=== PATIENT | male | born 1985 | race Caucasian/White ===

== ENCOUNTER 2018-02-11 17:32 | Emergency (ER) | payer OTHER ==
[~2018-02-11] VITALS: Ht 177.8 cm; Wt 86.1 kg
[2018-02-11 17:34] VITALS: BP 139/92
[2018-02-11] MEDS ORDERED: ALPR0.25 PO (17:45)
[2018-02-11] MEDS ORDERED: DEXT10TA7 PO (17:45)
[2018-02-11] MEDS ORDERED: IBUPROFEN 200 MG TABLET ONE (18:25)
[2018-02-11] MEDS ORDERED: IBUPROFEN 200 MG TABLET PO ONE (18:30)
== END 2018-02-11 18:55 | disposition home or self-care (01) ==
LOC: ED 18:05
DX: S63.512A Sprain of carpal joint of left wrist, initial encounter (principal); W01.0XXA Fall on same level from slipping, tripping and stumbling without subsequent striking against object, initial encounter; Y93.89 Activity, other specified; Y92.009 Unspecified place in unspecified non-institutional (private) residence as the place of occurrence of the external cause; Y99.8 Other external cause status
CPT/HCPCS: 29260; 99284